=== PATIENT | female | born 1980 | race African-American/Black ===

== ENCOUNTER 2017-01-31 09:59 | Emergency (ER) | payer MEDICAID, OTHER ==
[~2017-01-31] VITALS: Ht 157.5 cm; Wt 86.0 kg
[2017-01-31 10:05] VITALS: BP 149/92
== END 2017-01-31 12:14 | disposition home or self-care (01) ==
LOC: ER 11:34
DX: J02.8 Acute pharyngitis due to other specified organisms (principal); I10 Essential (primary) hypertension; R59.0 Localized enlarged lymph nodes; F17.200 Nicotine dependence, unspecified, uncomplicated
CPT/HCPCS: 87070; 87430; 99283; 99284

== ENCOUNTER 2019-05-13 16:21 | Emergency (ER) | payer MEDICAID ==
[~2019-05-13] VITALS: Ht 157.5 cm; Wt 91.0 kg
[2019-05-13] MEDS ORDERED: SODIUM CHLORIDE 0.9% 1,000 ML IV ONE (16:36)
[2019-05-13] MEDS ORDERED: ONDANSETRON HCL 4MG/2ML INJ IV STA (16:36)
[2019-05-13 18:49] VITALS: BP 142/75
== END 2019-05-13 19:01 | disposition home or self-care (01) ==
LOC: ER 16:21
DX: R11.2 Nausea with vomiting, unspecified (principal); I10 Essential (primary) hypertension; E78.00 Pure hypercholesterolemia, unspecified
CPT/HCPCS: 96361; 96374; 99283; J2405; J7030

== ENCOUNTER 2024-01-29 00:39 | Emergency (ER) | payer MEDICAID, OTHER ==
[~2024-01-29] VITALS: Ht 160 cm; Wt 98.0 kg
[2024-01-29 00:44] VITALS: O2SAT 99
[2024-01-29 01:10] VITALS: TEMP 97.8
[2024-01-29] MEDS: HYDRALAZINE 20MG/ML VIAL IV ONE (01:34)
[2024-01-29] MEDS: LORAZEPAM 1MG TABLET PO ONE (01:39)
[2024-01-29 01:44] LABS: BASOPHILS % 0.8 % (0.0-2.0); DIFFERENTIAL COMMENT 0; EOSINOPHILS % 0.6 % (0.0-5.0); HEMATOCRIT. 33.3 % (36.0-48.0); HEMOGLOBIN. 11.3 g/dL (12.0-16.0); LYMPHOCYTES % 31.3 % (20.0-50.0); MEAN CORPUSCULAR HEMOGLOBIN 36.1 pg (28.0-32.0); MEAN CORPUSCULAR VOLUME 106.2 fL (81.0-99.0); MEAN PLATELET VOLUME 9.1 fl (7.4-10.4); MONOCYTES % 7.4 % (2.0-8.0); NEUTROPHILS % 59.9 % (40.0-76.0); PLATELET 305 x1000/uL (130-400); RED BLOOD CELL COUNT 3.13 mill/uL (4.2-5.4); RED CELL DISTRIBUTION WIDTH 13.5 % (11.6-14.6); WHITE BLOOD COUNT 11.7 x1000/uL (4.5-11.0)
[2024-01-29 02:30] LABS: ALANINE AMINOTRANSFERASE 22 IU/L (10-49); ALBUMIN 4.1 g/dL (3.2-4.8); ASPARTATE AMINOTRANSFERASE 27 IU/L (<34); BILIRUBIN TOTAL 0.2 mg/dL (0.1-1.0); CALCIUM 8.7 mg/dL (8.7-10.4); CARBON DIOXIDE 24 mEq/L (21-32); CHLORIDE 110 mEq/L (98-107); CREATININE 0.8 mg/dL (0.6-1.0); GLUCOSE 88 mg/dL (70-105); POTASSIUM 3.4 mEq/L (3.5-5.1); PROTEIN TOTAL 7.1 g/dL (6.0-8.3); SODIUM 140 mEq/L (136-145); TROPONIN I HIGH SENSITIVITY 4 ng/L (3.0-34); UREA NITROGEN BLOOD 16 mg/dL (9-23)
[2024-01-29 04:50] LABS: TROPONIN I HIGH SENSITIVITY 5 ng/L (3.0-34)
[2024-01-29] MEDS ORDERED: ASPI-986 MT (05:51)
[2024-01-29] MEDS ORDERED: LORA-249 MT (05:51)
[2024-01-29 06:01] VITALS: BP 118/53; PULSE 86; RESP 16
== END 2024-01-29 06:01 | disposition home or self-care (01) ==
LOC: ER 00:39
DX: F41.0 Panic disorder [episodic paroxysmal anxiety] (principal); R01.1 Cardiac murmur, unspecified; I10 Essential (primary) hypertension; E78.00 Pure hypercholesterolemia, unspecified
CPT/HCPCS: 99285; 96374; 71045; 80053; 83880; 85025; 84484; 36415; 93005; J0360